=== PATIENT | female | born 1965 | race African-American/Black ===

== ENCOUNTER → 2018-04-24 | Day surgery (SDC) | payer BC ==
--- NOTE | 2018-04-26 14:55 | PATH ---
Surgical Pathology Report Patient Name: MICHAEL DAVIDSON [facility]. Rec. #: [id number] /Age/Gender: 1965 (Age: 52) / F Account: [id number] [facility] Taken: 04/24/2018 Received: 04/24/2018 Reported: 04/26/2018 Physicians: Andreina Brooks M.D. 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 patient had fat injection and breast implant (s/p left mastectomy) Final Diagnosis BREAST, LEFT, 11:30, CORE BIOPSY: INVASIVE MICROPAPILLARY CARCINOMA, MODERATELY DIFFERENTIATED, ATLEAST 9 MM IN THIS MATERIAL. Results of Estrogen Receptor (ER) and Progesterone Receptor (SC) studies performed on block "1" at [facility] are as follows: ER (clone [id number] mouse monoclonal antibody by [employer]): 90% nuclear staining with strong intensity (Positive). SC (clone16 mouse monoclonal antibody by [employer]): 80% nuclear staining with moderate to strong intensity (Positive). Results of Her2 (IHC) & Ki-67 studies performed on block "1" at [place], [place] ([id number]) are as follows: Her2 IHC (EP3 from [employer], formerly known as [id number], using Myrick Polymer Refine detection kit): 1+ (Negative). Ki-67: ~20% (Intermediate proliferative index). Comment: Immunohistochemical stains performed and interpreted at [facility] show p63 and SMM-HC shows loss of myoepithelial cells, supporting the diagnosis. Positive and negative controls (internal if applicable) show appropriate results. Formalin fixation and cold ischemic times are within current ASCO/CAP recommendations for ER, SC and Her2 testing. Electronically Signed Radha Tariq M.D. Gross Description Received in formalin labeled "left 11:30" are 3 agustin-yellow, cylindrical portions of fibroadipose tissue ranging from 0.3-1.2 cm in length and averaging 0.1 cm diameter. The specimens are submitted in toto in one cassette. Time in formalin: 11:20 AM Total formalin fixation time: 7-8 hours. MOE/04/24/2018 tierra/04/24/2018
== END | disposition home or self-care (01) ==
LOC: JRADUS-SUR 10:27
PROVIDERS: ATTEND Surgery Surgical Oncology
PROC: 0HBU3ZX Excision of Left Breast, Percutaneous Approach, Diagnostic (ICD-10-PCS; principal; 2018-04-24)
DX: C50.912 Malignant neoplasm of unspecified site of left female breast (principal)
CPT/HCPCS: 19083; 87899; 88305-TC; 88341-TC; 88342-TC; A4648

== ENCOUNTER 2019-05-01 06:11 | Day surgery (SDC) | payer BC | END 2019-05-01 12:53 | disposition home or self-care (01) | LOC: JASU-SURG 06:11 ==

== ENCOUNTER 2019-08-21 06:39 | Day surgery (SDC) | payer BC ==
[2019-08-17 19:20] VITALS: BMI 33.8
[2019-08-21] MEDS ORDERED: ROCURONIUM BROMIDE 50 MG/5 ML SYRINGE ONE ×2 (07:19→09:13)
[2019-08-21] MEDS ORDERED: LIDOCAINE HCL/PF 2% SDV 5ML VIAL ONE (07:19)
[2019-08-21] MEDS ORDERED: MIDAZOLAM HCL 2 MG/2 ML SINGLE DOSE VIAL ONE (07:19)
[2019-08-21] MEDS ORDERED: ceFAZolin SODIUM 1 GM VIAL ONE (07:19)
[2019-08-21] MEDS ORDERED: PROPOFOL 20 ML ONE ×3 (07:19→08:19)
[2019-08-21] MEDS ORDERED: SODIUM CHLORIDE 0.9% P/F 10 ML VIAL IJ ONE (07:19)
[2019-08-21] MEDS ORDERED: fentaNYL CITRATE 250 MCG/5 ML VIAL ONE (07:19)
[2019-08-21] MEDS ORDERED: LIDOCAINE HCL 2% JELLY (5 ML/TUBE) ONE (07:20)
[2019-08-21] MEDS ORDERED: ceFAZolin SODIUM 1 GM VIAL IVPB ONE (08:32)
[2019-08-21] MEDS ORDERED: NEOSTIGMINE METHYLSULFATE 0.5 MG/ML - 10 ML MDV ONE (09:36)
[2019-08-21] MEDS ORDERED: GLYCOPYRROLATE 0.2 MG/1 ML VIAL ONE (09:36)
[2019-08-21] MEDS ORDERED: DEXAMETHASONE SOD PHOSPHATE 4 MG/1 ML VIAL ONE (09:45)
--- NOTE | 2019-08-21 11:11 | OP ---
Operative Note - Note: Operative Date: 08/21/19 Pre-Operative Diagnosis: Breast Asymmetry after Left Mastectomy and Reconstruction Operation: Right Central Pedicled Breast Mastopexy for Symmetry after Reconstruction Implants: None Post-Operative Diagnosis: Same as Pre-op Surgeon: Hong Ramsey Anesthesia: General Specimens Removed: Skin and Tissue Right Breast Drains & Tubes with Location: Jose Drain Exits Lateral Corner of InfraMammary Wound Operative Report Dictated: Yes
[2019-08-21] MEDS ORDERED: oxyCODONE HCL 5 MG TABLET PO PRN (11:21)
[2019-08-21] MEDS ORDERED: oxyCODONE HCL 5 MG TABLET PO ONE (14:40)
[2019-08-21] MEDS ORDERED: oxyCODONE HCL 5 MG TABLET ONE (14:40)
[2019-08-21 15:15] VITALS: BP 119/75; PULSE 61; TEMP 97.9
--- NOTE | 2019-08-21 15:26 | OP ---
DATE OF OPERATION: 08/21/2019 PREOPERATIVE DIAGNOSIS: Breast asymmetry after breast cancer reconstruction. POSTOPERATIVE DIAGNOSIS: Breast asymmetry after breast cancer reconstruction. PROCEDURE PERFORMED: Right breast mastopexy for symmetry. SURGEON: Hong Garsia MD ANESTHESIA: General via LMA. BRIEF HISTORY: The patient is status post left modified radical mastectomy with reconstruction and subsequent radiation therapy. After her reconstruction on the left breast and the radiation, there is now modest asymmetry between the left and right breasts. She now presents for procedure for the right breast to correct this asymmetry. DESCRIPTION OF PROCEDURE: The patient was marked in the standing position 1 day prior to surgery and is now on the operating table in supine position. General anesthesia was administered by the anesthesiologist, and the area of the chest was prepped and draped in the usual sterile fashion. A tourniquet was placed at the base of the right breast, and a 42-mm cookie cutter was used to create a surgical incision about the right nipple areolar complex. This incision was made with a No. 15 scalpel blade and carried down through subcutaneous tissues. The other incisions were made as marked. The central 8-cm wide pedicle was deepithelialized, and hemostasis was achieved with electrocautery. Superior, medial, and lateral flaps were created with lateral medial triangular segments excised. The vertical pillars were reapproximated using 3-0 Biosyn suture in interrupted and continuous over and over fashion. A [place] drain was inserted exited the inframammary wound in its lateral corner, and a 2-0 silk suture was used to tack close the grijalva points in the center of the inframammary fold and at the base of the areola. Wounds were then closed in layered fashion. Deep tissues were closed with No. 3-0 Biosyn suture in interrupted buried fashion. A deep dermal layer of 4-0 V-Lock 90 was used for skin. Several 5-0 nylon sutures were placed instead of using Steri-Strips. The V-Lock suture in the lateral corner of the inframammary fold was left loose and will be pulled tighter upon removal of the Jose drain tomorrow. The nipple showed good viability at the conclusion of the procedure, and sterile dressings were applied consisting of Telfa and Kerlix gauze and secured with a surgical bra. The patient was then awoken from anesthesia without any difficulty and taken from the operating room to the recovery room in satisfactory condition having tolerated the procedure well. HONG GARSIA M.D. /[id number]
--- NOTE | 2019-08-22 17:08 | PATH ---
Surgical Pathology Report Patient Name: MICHAEL DAVIDSON [facility]. Rec. #: [id number] /Age/Gender: 1965 (Age: 53) / F Account: [id number] Location: [facility] SURGICAL Taken: 08/21/2019 Received: 08/21/2019 Reported: 08/22/2019 Physicians: Hong Ramsey M.D. Specimen(s) Received RIGHT BREAST RECONSTRUCTION Clinical History Right breast reconstruction History of left breast cancer Final Diagnosis RIGHT BREAST TISSUE, EXCISION: BENIGN BREAST TISSUE WITH FOCAL ADENOSIS, USUAL DUCTAL HYPERPLASIA, AND STROMAL FIBROSIS. PORTIONS OF SKIN WITH NO SIGNIFICANT PATHOLOGIC CHANGE. Electronically Signed Shaggy Mccarty M.D. Gross Description Received in formalin, labeled "right breast tissue" are 3 irregular portion of skin ranging from 10 x 0.5 x 0.1 cm to 9.5 x 2.5 x 0.2 cm. The skin surfaces are remarkable. Separates one portion of skin with subcutaneous tissue measuring 8.0 x 3.0 x 3.5 cm with unremarkable skin surface. Separate one portion of fibroadipose tissue measuring 6.0 x 2.5 x 2.4 cm is also present. Serial sections reveal unremarkable fibroadipose surface. No mass is identified. 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 SANDEEP/08/21/2019 kwame/08/21/2019
== END 2019-08-21 15:00 | disposition home or self-care (01) ==
LOC: JASU-SURG 06:39
PROVIDERS: ATTEND Plastic Surgery
PROC: 0HST0ZZ Reposition Right Breast, Open Approach (ICD-10-PCS; principal; 2019-08-21 08:00)
DX: N65.1 Disproportion of reconstructed breast (principal); Z85.3 Personal history of malignant neoplasm of breast
CPT/HCPCS: 88305-TC; 94760

== ENCOUNTER 2019-09-20 06:16 | Day surgery (SDC) | payer BC ==
[2019-09-18 15:36] VITALS: BMI 33.1
[2019-09-20] MEDS ORDERED: MIDAZOLAM HCL 2 MG/2 ML SINGLE DOSE VIAL ONE (07:31)
[2019-09-20] MEDS ORDERED: SUCCINYLCHOLINE CHLORIDE 200 MG/10 ML SYRINGE ONE (07:32)
[2019-09-20] MEDS ORDERED: PROPOFOL 20 ML ONE ×2 (07:32)
[2019-09-20] MEDS ORDERED: BUPIVACAINE HCL/PF 0.5% (5 MG/ML) 30 ML VIAL IJ ONE ×3 (07:54→07:59)
[2019-09-20] MEDS ORDERED: LIDOCAINE 1%-EPI 1:100,000 30 ML MDV IJ ONE (07:54)
[2019-09-20] MEDS ORDERED: LIDOCAINE 1%/EPI 1:100000 (20 ML MULTI DOSE VIAL) IJ ONE ×2 (07:59)
[2019-09-20] MEDS ORDERED: oxyCODONE HCL 5 MG TABLET PO PRN (09:05)
[2019-09-20] MEDS ORDERED: ONDANSETRON 4 MG/2 ML VIAL IVPUSH PRN (09:05)
[2019-09-20] MEDS ORDERED: PROMETHAZINE HCL 25 MG/1 ML VIAL IVPUSH PRN (09:05)
--- NOTE | 2019-09-20 09:06 | OP ---
Operative Note - Note: Operative Date: 09/20/19 Pre-Operative Diagnosis: History of Left Mastectomy with Reconstruction, Lack of Nipple Projection Operation: Dermal Graft to Left Nipple, Right Breast IMF Donor Site Post-Operative Diagnosis: Same as Pre-op Surgeon: Hong Ramsey Anesthesia: General Operative Report Dictated: Yes
[2019-09-20] MEDS ORDERED: LACTATED RINGERS SOLUTION 1,000 ML IV SCH (09:15)
[2019-09-20 09:56] VITALS: TEMP 97.9
[2019-09-20 11:49] VITALS: BP 107/69; PULSE 64
--- NOTE | 2019-09-20 13:47 | OP ---
DATE OF OPERATION: 09/20/2019 PREOPERATIVE DIAGNOSIS: History of left mastectomy with reconstruction and lack of nipple projection. POSTOPERATIVE DIAGNOSIS: History of left mastectomy with reconstruction and lack of nipple projection. PROCEDURE PERFORMED: Left nipple reconstruction with dermal graft harvested from right breast inframammary fold. SURGEON: Hong Garsia MD ANESTHESIA: General via LMA. DESCRIPTION OF PROCEDURE: The patient was on the operating table in supine position, and general anesthesia was administered by the anesthesiologist. The area of the chest was prepped and draped in the usual sterile fashion. A marking pen was used to design an elliptical excision of skin along the right breast inframammary fold. The superior margin of which was the scar from the patient's recent mastopexy for breast symmetry. This area was then infiltrated with solution of 1% lidocaine with epinephrine mixed with 0.5% Marcaine. Approximately 10 mL of this solution were used. After allowing sufficient time for the epinephrine to take effect, the region marked was de-epithelialized with number-10 scalpel blade. The deep portion of the dermis was then excised as a long narrow strip and saved as specimen on a wet gauze. Hemostasis was achieved with electrocautery, and this wound was closed in layered fashion. Deep tissues were closed with number 3-0 Biosyn suture, and a 4-0 V-Loc 90 suture was used in intradermal continuous fashion for skin closure. A 4-0 Biosyn suture was then used to reshape the long, narrow harvested dermal strip into a near-spherical shape. A semicircular incision was made at the inferior half of the left nipple area, and a pocket was created. The dermal graft was then inserted into this pocket, and the wound was closed. A 4-0 nylon suture was used in interrupted horizontal mattress fashion. Sterile dressings were then applied and secured with a surgical bra. The patient was then awoken from anesthesia without difficulty and taken from the operating room to the recovery room in satisfactory condition, having tolerated the procedure well. HONG GARSIA M.D. /[id number]
== END 2019-09-20 10:30 | disposition home or self-care (01) ==
LOC: JASU-SURG 06:16
PROVIDERS: ATTEND Plastic Surgery
PROC: 0HB5XZZ Excision of Chest Skin, External Approach (ICD-10-PCS; 2019-09-20)
PROC: 0JR607Z Replacement of Chest Subcutaneous Tissue and Fascia with Autologous Tissue Substitute, Open Approach (ICD-10-PCS; 2019-09-20)
PROC: 0HRX07Z Replacement of Left Nipple with Autologous Tissue Substitute, Open Approach (ICD-10-PCS; principal; 2019-09-20 07:30)
DX: Z90.12 Acquired absence of left breast and nipple (principal); N64.53 Retraction of nipple
CPT/HCPCS: 94760

== ENCOUNTER 2024-10-26 05:58 | Day surgery (SDC) | payer BC ==
[2024-10-23 14:03] VITALS: BMI 35.4
[2024-10-26] MEDS ORDERED: SUCCINYLCHOLINE CHLORIDE 200 MG/10 ML SYRINGE ONE (07:04)
[2024-10-26] MEDS ORDERED: MIDAZOLAM HCL 2 MG/2 ML SINGLE DOSE VIAL ONE (07:04)
[2024-10-26] MEDS ORDERED: DEXAMETHASONE SOD PHOSPHATE 4 MG/1 ML VIAL ONE (07:04)
[2024-10-26] MEDS ORDERED: ceFAZolin SODIUM 1 GM VIAL ONE (07:04)
[2024-10-26] MEDS ORDERED: LIDOCAINE HCL/PF 2% SDV 5ML VIAL ONE (07:04)
[2024-10-26] MEDS ORDERED: ROCURONIUM BROMIDE 50 MG/5 ML SYRINGE ONE (07:04)
[2024-10-26] MEDS ORDERED: PROPOFOL 40 ML ONE (07:04)
[2024-10-26] MEDS ORDERED: BUPIVACAINE HCL/EPINEPHRINE/PF 30 ML VIAL IJ ONE (07:13)
[2024-10-26] MEDS ORDERED: BUPIVACAINE HCL/PF 2.5 MG/ML - 30 ML VIAL IJ ONE (07:14)
[2024-10-26] MEDS ORDERED: LIDOCAINE 1%/EPI 1:100000 (20 ML MULTI DOSE VIAL) ONE (07:14)
[2024-10-26] MEDS ORDERED: LIDOCAINE HCL 1%, 10 MG/ML (20ML VIAL) ONE (07:14)
[2024-10-26] MEDS ORDERED: ACETAMINOPHEN INJECTION 100 ML ONE (07:20)
[2024-10-26] MEDS ORDERED: oxyCODONE HCL 5 MG TABLET PO PRN (07:36)
[2024-10-26] MEDS ORDERED: ONDANSETRON 4 MG/2 ML VIAL IVPUSH PRN (07:36)
[2024-10-26] MEDS ORDERED: LACTATED RINGERS SOLUTION 1,000 ML IV SCH (07:45)
[2024-10-26] MEDS ORDERED: HYDROmorphone HCL/PF 1 MG/ML VIAL ONE (08:49)
[2024-10-26] MEDS ORDERED: ONDANSETRON 4 MG/2 ML VIAL ONE (09:00)
[2024-10-26 10:38] VITALS: TEMP 97.2
[2024-10-26 13:57] VITALS: BP 122/78; PULSE 58; RESP 16
== END 2024-10-26 12:17 | disposition home or self-care (01) ==
LOC: FASU 05:58
PROVIDERS: ATTEND Plastic Surgery
PROC: 0HRU0JZ Replacement of Left Breast with Synthetic Substitute, Open Approach (ICD-10-PCS; 2024-10-26)
PROC: 0HPU0JZ Removal of Synthetic Substitute from Left Breast, Open Approach (ICD-10-PCS; principal; 2024-10-26 08:44)
PROC: 0HPU0JZ Removal of Synthetic Substitute from Left Breast, Open Approach (ICD-10-PCS; 2024-10-26 08:44)
DX: Z85.3 Personal history of malignant neoplasm of breast (principal); Z92.3 Personal history of irradiation; N64.89 Other specified disorders of breast
CPT/HCPCS: 15777; 19342; 19370; L8600; 88300-TC; 94760; J0131; Q4116